=== PATIENT | male | born 1945 | race Caucasian/White ===

== ENCOUNTER 2020-04-14 19:45 | Emergency (ER) | payer MEDICARE, BC ==
[2020-04-14] MEDS ORDERED: Lidocaine 1% 10 ML MDV INJECT ONE (19:55)
--- NOTE | 2020-04-14 20:01 | EDM.PDOC ---
ED HPI GENERAL MEDICAL PROBLEM - General Chief Complaint: Head Injury Stated Complaint: [facility] Time Seen by Provider: 04/14/20 19:48 Source of Information: Reports: Patient History Limitations: Reports: No Limitations - History of Present Illness INITIAL COMMENTS - FREE TEXT/NARRATIVE: Patient is a 75-year-old male brought in by [facility] for a laceration to his head. Patient is a resident of [facility]. Per nurse report , he fell while in the bathroom. Patient states he hit his head on the corner of the wall. Patient does have a history of memory loss due to dementia, Parkinson's, and hallucinations. Per his daughter's report, he was bent over reaching for something as he thought there were some and they are working on some "equipment "when he fell. She states this is quite common for him. He often sees things that are not there due to his dementia. He takes a baby aspirin daily. He denies having headache or nausea at this time. Denies loss of consciousness. Assisted living has no record of him receiving a tetanus vaccination. Head Pain Score (Numeric/FACES): 5 - Related Data Allergies Allergy/AdvReac Type Severity Reaction Status Date / Time No Known Allergies Allergy Verified 04/14/20 19:49 Home Meds: Home Meds Albuterol Sulfate 2.5 mg IH TID PRN 04/14/20 [History] Ascorbate Calcium [Vitamin C] 500 mg PO DAILY 04/14/20 [History] Aspirin [Halfprin] 81 mg PO DAILY 04/14/20 [History] Carbidopa/Levodopa [Carbidopa-Levo ER 25-100] 1.5 tab PO QID 04/14/20 [History] Carbidopa/Levodopa [Carbidopa-Levo ER 50-200] 1 tab PO BEDTIME 04/14/20 [History ] Citrulline [Pure l-Citrulline] 600 mg PO DAILY 04/14/20 [History] Donepezil HCl 10 mg PO BEDTIME 04/14/20 [History] Famotidine 20 mg PO BID 04/14/20 [History] Finasteride 5 mg PO DAILY 04/14/20 [History] Fish Oil/[place]-3 Fatty Acids [Fish Oil 1,000 MG] 1 each PO DAILY 04/14/20 [ History] Loratadine 10 mg PO DAILY 04/14/20 [History] Melatonin 10 mg PO BEDTIME 04/14/20 [History] Montelukast [Singulair] 10 mg PO DAILY 04/14/20 [History] Pimavanserin Tartrate [Nuplazid] 34 mg PO DAILY 04/14/20 [History] QUEtiapine [SEROquel] 25 mg PO DAILY 04/14/20 [History] QUEtiapine [SEROquel] 50 mg PO BID 04/14/20 [History] Simvastatin [Zocor] 20 mg PO DAILY 04/14/20 [History] Tamsulosin [Tamsulosin 24 Hr] 0.4 mg PO DAILY 04/14/20 [History] Tiotropium Br/Olodaterol HCl [Stiolto Respimat Inhal [place]] 2 puff INH DAILY 08/24 [History] ED ROS GENERAL - Review of Systems Review Of Systems: Comprehensive ROS is negative, except as noted in HPI. ED EXAM, HEAD INJURY - Physical Exam Exam: See Below Exam Limited By: No Limitations General Appearance: Alert, WD/WN, No Apparent Distress Head: Scalp Lacerations (2 cm laceration on the top of his head just left of midline. Small amount of active bleeding. Small amount of edema.) Nexus Criteria: No: Posterior, Midline Cervical Tenderness, Evidence of Intoxication, Altered Level of Consciousness, Focal Neurological Deficit, Painful Distraction Injuries Neck: Non-Tender, Full Range of Motion, Normal Alignment, Normal Inspection Respiratory: No Respiratory Distress, Lungs Clear, Normal Breath Sounds, No Accessory Muscle Use, Chest Non-Tender Cardiovascular: Normal Peripheral Pulses, Regular Rate, Rhythm, No Edema, No Gallop, No JVD, No Murmur, No Rub Back Exam: Full Range of Motion, Normal Inspection, NT Neurologic: brass polisher II-XII nml As Tested, No Motor/Sensory Deficits, Alert, Normal Mood/Affect, Oriented x 3 Skin: Normal Color, Warm/Dry - [place] Coma Score Best Eye Response (Jonathan): (4) Open Spontaneously Best Verbal Response (Jonathan): (4) Confused Conversation (At baseline. History of dementia.) Best Motor Response ([place]): (6) Obeys Commands ED LACERATION/WOUND & ROBBY PROC - Laceration/Wound Repair Left Upper Head Lac/wound length in cm: 2 Appearance: Subcutaneous Anesthetic Type: Local Local Anesthesia - Lidocaine (Xylocaine): 1% Plain Local Anesthetic Volume: 2cc Skin Prep: Chlorhexidine (Hibiciens), Saline Exploration/Debridement/Repair: Wound Explored, No Foreign Material Found Closed with: [place] Sterile Dressing Applied: Nurse Tetanus Status Addressed: Yes Complications: No Progress/Comments: 2 bren applied. Edges well approximated. Course - Vital Signs Last Recorded V/S: Last Vital Signs Temp 98.4 F 04/14/20 19:50 Pulse 88 04/14/20 19:50 Resp 16 04/14/20 19:50 BP 125/75 04/14/20 19:50 Pulse Ox 98 04/14/20 19:50 - Orders/Labs/Meds Orders: Active Orders 24 hr Category Date Time Status Vaccines to be Administered [RC] PER UNIT ROUTINE Care 04/14/20 20:05 Active Meds: Medications Discontinued Medications Generic Name Dose Route Start Last Admin Trade Name Freq PRN Reason Stop Dose Admin Diphtheria/Tetanus/Acell Pertussis 0.5 ml 04/14/20 20:05 Adacel IM 04/14/20 20:06 .ONCE ONE Lidocaine HCl 10 ml 04/14/20 19:55 04/14/20 19:58 Xylocaine 1% INJECT 04/14/20 19:56 10 ml ONETIME ONE Administration - Re-Assessments/Exams Free Text/Narrative Re-Assessment/Exam: 04/14/20 20:41 CT scan was negative for any intracranial bleeding. See procedure notes for wound closure. Patient's daughter is here with him. She will give him a ride back to [employer]. Discharge instructions as documented. Departure - Departure Time of Disposition: 20:41 Disposition: Home, Self-Care 01 Condition: Good Clinical Impression: Laceration of head Qualifiers: Encounter type: initial encounter Location of open wound of head: scalp Foreign body presence: without foreign body Qualified Code(s): S01.01XA - Laceration without foreign body of scalp, initial encounter Fall Qualifiers: Encounter type: initial encounter Qualified Code(s): W19.XXXA - Unspecified fall, initial encounter - Discharge Information *PRESCRIPTION DRUG MONITORING PROGRAM REVIEWED*: No *COPY OF PRESCRIPTION DRUG MONITORING REPORT IN PATIENT AUGUSTO: No Instructions: Sutures, Bren, or Adhesive Wound Closure, [id number] Referrals: Candi Manuel, [facility] [Primary Care Provider] - Forms: ED Department Discharge Additional Instructions: Rambo was seen in the emergency department today for a laceration to the top of his head after falling. CT scan was done of the head and shows no cranial bleeding. The wound was cleansed and closed with 2 bren. These should stay intact for 7 days. After that time they may be removed nursing. Keep the wound clean and dry. Wash with normal soap and water twice daily. Do not submerge the wound in water. Watch for signs of infection including increased redness, swelling, or purulent drainage. If these should occur, you should be seen either in the clinic or in the emergency department as antibiotic treatment may be needed. Return to the ER as needed. Sepsis Event Note (ED) - Evaluation Sepsis Screening Result: No Definite Risk - Focused Exam Vital Signs: Vital Signs Temp Pulse Resp BP Pulse Ox 04/14/20 19:50 98.4 F 88 16 125/75 98 - My Orders Last 24 Hours: My Active Orders 04/14/20 20:05 Vaccines to be Administered [RC] PER UNIT ROUTINE - Assessment/Plan Last 24 Hours: My Active Orders 04/14/20 20:05 Vaccines to be Administered [RC] PER UNIT ROUTINE
[2020-04-14] MEDS ORDERED: Diphtheria,Pertussis(Acell),Tetanus Vaccine 0.5 ML Syringe IM ONE (20:05)
--- NOTE | 2020-04-14 20:38 | CT ---
Head CT Technique: Multiple axial sections through the brain were obtained. Intravenous contrast was not utilized. Comparison: No prior intracranial imaging is available. Findings: Ventricles along with basal cisterns and sulci over the convexities are mildly prominent. No abnormal parenchymal densities are seen. No evidence of intracranial hemorrhage. No midline shift or mass-effect is seen. Bone window settings were reviewed. No acute calvarial finding is seen. Visualized paranasal sinuses and mastoid sinuses show nothing acute. Impression: 1. Mild generalized atrophy. 2. No acute intracranial abnormality is appreciated on noncontrast head CT exam. Diagnostic code #1 This report was dictated in MDT
== END 2020-04-14 21:10 | disposition home or self-care (01) ==
LOC: JD.ED 19:45 → SUPCPDRO 19:45 → JD.ED 21:10
DX: S01.01XA Laceration without foreign body of scalp, initial encounter (principal); Z23 Encounter for immunization; Z79.82 Long term (current) use of aspirin; Z79.899 Other long term (current) drug therapy; W22.01XA Walked into wall, initial encounter; W01.10XA Fall on same level from slipping, tripping and stumbling with subsequent striking against unspecified object, initial encounter; Y92.091 Bathroom in other non-institutional residence as the place of occurrence of the external cause
CPT/HCPCS: 12001; 70450; 90471; 90715; 99284; J2001